=== PATIENT | male | born 1945 | race Caucasian/White ===

== ENCOUNTER 2016-09-29 15:39 | Observation (INO) | payer MEDICARE, BC ==
[~2016-09-29] VITALS: Ht 180.3 cm; Wt 98.2 kg
--- NOTE | ~2016-09-29 | ER ---
PATIENT'S NAME: STEVO WIN [facility] AGE: 70 Y [address] ROOM: [place] [address] LOCATION: GPCU ADMIT DATE: 09/29/2016 ER/Outpatient Report DISCHARGE DATE: FAMILY PHYSICIAN: EMELY WEATHERS MD ATTENDING PHYSICIAN: SAULO CORLEY CHIEF COMPLAINT: Near syncope. TIME OF THE PATIENT ARRIVAL: 1539 hours. TIME OF THE PATIENT EVALUATION: 1539 hours. HISTORY OF PRESENT ILLNESS: This is a 70-year-old male presents to the ER who states that he is here from out-of-town and he went to a motorcycle show today. He states he had 4 separate incidents, where he felt like he was going to pass out while there. He states he has had similar symptoms of this before being 1 week ago. He states he was evaluated in [facility] and was admitted overnight for evaluation. He states he did try to follow up with his primary care physician, but states he was late for his appointment by 15 minutes and so they could not work him into the schedule. The patient states that he had no further episodes of these spells until today. He states during these episodes today it made him feel weak, but he never had any nausea, vomiting, or diaphoresis during them. The patient states that he did feel a little bit short of breath at this time. He states that he never feels any heart palpitations with this. He states he does have a history of PVCs, but they have never done anything for them. The patient denies any recent illness, no fever or chills, no troubles with bowel movements or urination, and no current pain at this time. ALLERGIES: NO KNOWN ALLERGIES. MEDICATIONS: Please see medication list nurse's notes. PAST MEDICAL HISTORY: 1. Hypertension. 2. Hyperlipidemia. 3. Obstructive sleep apnea. 4. Acid reflux. 5. History of orthostatic hypotension. PATIENT'S NAME: STEVO WIN [facility] AGE: 70 Y [address] ROOM: [address] [place] [id number] LOCATION: GPCU ADMIT DATE: 09/29/2016 ER/Outpatient Report DISCHARGE DATE: FAMILY PHYSICIAN: EMELY WEATHERS MD ATTENDING PHYSICIAN: SAULO CORLEY 6. Peripheral neuropathy. 7. Anxiety. 8. Depression. PAST SURGICAL HISTORY: He has had 2 separate back surgeries. SOCIAL HISTORY: Denies smoking, drug, or alcohol use. REVIEW OF SYSTEMS: A 10-point review of system was completed and was negative with the exception of those discussed in the HPI. PHYSICAL EXAMINATION: VITAL SIGNS: Height 5 feet, 11 inches stated, weight 102.9 kg taken, blood pressure is 146/67, pulse 82, respirations 16, temperature 96.6 degrees tympanically, and saturations 93% on room air. Selma Coma Score is 15. GENERAL: Alert, calm, well-developed male, in no obvious distress, but he does seem slow to respond. HEENT: Head: Normocephalic. He does display moist mucous membranes. Eyes: Pupils are equal and reactive to light. NECK: Supple. No lymphadenopathy. LUNGS: Clear to auscultation bilaterally. No wheeze or crackles. Normal respiratory effort. HEART: Regular rate and rhythm. No lifts, thrills, or murmurs. ABDOMEN: Soft, it is nontender, has good bowel sounds throughout. No masses are palpated. EXTREMITIES: No clubbing or cyanosis. He has full range of motion of all limbs. No pitting edema was noted. He has equal bilateral strength. SKIN: Warm, dry, and intact. LABORATORY DATA: CBC: White count is 5.5, hemoglobin is 13.4, platelets 186, ANC is 3.6. PTT is 25, INR is 1.0. CMS: Glucose is 116, BUN 21, creatinine 1.4, sodium is 139, potassium 3.8, estimated GFR is 50, magnesium is 2.2, CPK is 158, CK-MB is 4.4, troponin I is less than 0.040, free T4 is 0.9. TSH is 1.80. Urinalysis is negative for any infection. Chest x-ray shows elevation of the right hemidiaphragm and no infiltrate was seen. IMPRESSION: 1. Near syncopal episodes. 2. Runs of bigeminy. 3. History of hypertension. 4. Orthostatic hypotension. PATIENT'S NAME: STEVO WIN [facility] AGE: 70 Y [address] ROOM: [id number] [place] [id number] LOCATION: [facility] ADMIT DATE: 09/29/2016 ER/Outpatient Report DISCHARGE DATE: FAMILY PHYSICIAN: EMELY WEATHERS MD ATTENDING PHYSICIAN: SAULO CORLEY ASSESSMENT AND PLAN: We did monitor the patient here in the emergency room. I discussed the patient's care with Dr. Alcaraz and Dr. Alcaraz also evaluated the patient. We did start an IV here in the emergency room and did monitor him. He did have some runs of bigeminy while he was here, but remain asymptomatic. The patient states his primary care physician is in [place]; therefore, we called the Hospitalist Service for admission and Dr. Alcaraz did speak with Dr. Liu as well and they will be consulting on the patient. The patient is agreeable with stay; so, we will be turning the care over to the hospitalist and Dr. Liu at this time. WINTER SHAFFER PA-C FOR [facility] SEOJ/modl /[id number] I have personally evaluated this patient. I discussed the patient's care with the PA and agree with the assessment and plan as documented above. Bijan Alcaraz MD d: t: 10/24/16 1154, OUTPATIENT REPORT
--- NOTE | ~2016-09-29 | CON ---
PATIENT'S NAME: STEVO WIN [facility] AGE: 70 Y [address] ROOM: [facility] [place], [place] [address] [facility] ADMIT DATE: 09/29/2016 Consultation DISCHARGE DATE: FAMILY PHYSICIAN: EMELY WEATHERS MD ATTENDING PHYSICIAN: SAULO CORLEY REFERRING PHYSICIAN: ANNE LOMELI MD REASON FOR CONSULT: Recurrent presyncopal episodes and frequent PVCs. HISTORY OF PRESENT ILLNESS: Mr. Win is a very pleasant, 70-year-old male, who was admitted with history of recurrent episodes of presyncope. The patient stated that he had been symptomatic in the past with complaints of room spinning sensation when he used to get up fast. However, 1 week ago, while he was washing his truck, he noticed sudden onset of darkness in front of his eyes. He went to local emergency room in [place] and workup did not reveal any cause. He was discharged with plan for outpatient event monitor. However, he missed his appointment with his primary care physician. Today, he was in town to attend motorcycle show. He developed similar symptoms of darkness in front of his eyes, hence he came to the emergency room. In the emergency room, the patient was found to have frequent PVCs in bigeminy pattern and hence he was admitted for further management. He denied any chest pain. He denied any shortness of breath. No history of fever. No history of seizures. No history of passing out. REVIEW OF SYSTEMS: The patient denied any recent change in vision. No history of nausea, vomiting, diarrhea, or constipation. No history of fever. No history of cough expectoration. No history of syncope, however, has had recurrent presyncopal episodes. Review of other systems was essentially negative. PAST MEDICAL HISTORY: Depression, anxiety, history of bradycardia. The patient stated that he had a stress test in the past and also heart catheterization about 8 years ago and he was told to have normal coronary arteries. PAST SURGICAL HISTORY: History of back surgery. FAMILY HISTORY: The patient stated his mother was found to have abnormal heart rhythm, just before she in her late 80s. His father in his 60s and had seizure history. SOCIAL HISTORY: PATIENT'S NAME: STEVO WIN [facility] AGE: 70 Y [address] ROOM: [address] [address] LOCATION: GPCU ADMIT DATE: 09/29/2016 Consultation DISCHARGE DATE: FAMILY PHYSICIAN: EMELY WEATHERS MD ATTENDING PHYSICIAN: ASULO CORLEY The patient is nonsmoker, occasionally drinks alcohol. He lives independently. CURRENT MEDICATIONS: In the hospital include: 1. Pantoprazole. 2. Simvastatin. 3. Potassium chloride. 4. Gabapentin. 5. Fenofibrate. PHYSICAL EXAMINATION: GENERAL: The patient is awake, alert, and oriented and in no distress. VITAL SIGNS: His pulse rate is 63 beats per minute and regular, blood pressure is 145/82 mmHg, respiratory rate is 16, temperature is 98. HEENT: His head is atraumatic and normocephalic. Pupils are equal. Tongue is moist. No significant cervical lymphadenopathy is present. No significant jugular venous distention is present. CARDIOVASCULAR: S1 and S2 are audible. They are regular in rate and rhythm with no audible murmur. RESPIRATORY: Bilateral vesicular breath sounds are audible with no adventitious sounds. ABDOMEN: Soft and nontender. No palpable organomegaly is present. Bowel sounds are present. EXTREMITIES: Showed no significant pedal edema. NEUROLOGIC: The patient is awake, alert, and oriented and no focal neurological deficits are noted. SKIN: Warm and dry. LABORATORY DATA: Sodium 140, potassium 3.9, chloride 103, CO2 of 28, glucose 107, BUN 15, creatinine 1.2. AST 22, ALT 27, estimated GFR 60. Magnesium 2.2. Cholesterol 162 in 2013. CPK 98, CK-MB 3.3. Troponin I is less than 0.04. White blood cell count 5.5, hemoglobin 13.4, hematocrit 41, platelet count 186. His EKG showed sinus rhythm at 65 beats per minute with first-degree AV block, right bundle branch block. His earlier EKG showed sinus rhythm with frequent PVCs with a heart rate of 80 beats per minute. The PVCs are in bigeminal pattern. ASSESSMENT AND PLAN: 1. Presyncope. 2. Frequent premature ventricular contractions. 3. Hyperlipidemia. 4. Chronic back pain. PATIENT'S NAME: STEVO WIN [facility] AGE: 70 Y [address] ROOM: [address] [place], [place] [address] LOCATION: [facility] ADMIT DATE: 09/29/2016 Consultation DISCHARGE DATE: FAMILY PHYSICIAN: EMELY WEATHERS MD ATTENDING PHYSICIAN: SAULO CORLEY PLAN: We will continue to monitor patient on telemetry. We will check orthostatics. Continue simvastatin and fenofibrate for his hyperlipidemia. In view of frequent PVCs, we will start the patient on low-dose beta-blockers and continue to monitor on telemetry. The patient was advised to undergo stress test in view of frequent PVCs to look for any ischemic etiology, however, the patient stated that he had a bad reaction to previous Lexiscan and refuses to undergo Lexiscan. Also stated that he has chronic back pain and he is not able to walk very fast and does not want to undergo regular stress test or any form of stress test. He was also offered heart catheterization to evaluate for ischemia, which the patient declined. He wants only medical management for PVCs. Hence, we will try beta-blockers and monitor on telemetry. The plan of care was discussed with patient in detail. We will follow the patient along with you. Thank you for allowing us in taking part in the care of this pleasant patient. MD MARIELLA FABIAN/trang /[id number] d: 09/30/16 0948 t: 10/10/16 1431, CONSULTATION REPORT
--- NOTE | ~2016-09-29 | DS ---
PATIENT'S NAME: STEVO WIN [facility] AGE: 70 Y [address] ROOM: [address] [place], [place] [address] LOCATION: GPCU ADMIT DATE: 09/29/2016 Discharge Summary DISCHARGE DATE: 10/01/2016 FAMILY PHYSICIAN: Amada White MD ATTENDING PHYSICIAN: Travis Johnson FINAL DIAGNOSES: 1. Presyncope. 2. Arrhythmia/frequent premature ventricular contractions. 3. Depression. 4. Hematochezia. 5. Chronic back pain. HISTORY OF PRESENT ILLNESS: Please see the history and physical dictated by Dr. Johnson for details of admission. LABORATORY DATA: On admission, sodium 139, potassium 3.8, chloride 100, CO2 32, BUN 21, and creatinine 1.4. Liver enzymes were normal. Magnesium 2.4 at discharge. Sodium 142, potassium 4.3, chloride 105, CO2 29, BUN 16, creatinine 1.1, and magnesium 2.3. White blood cell count on admission 5.5, hemoglobin 13.4, hematocrit 41.4, and platelet count 186. Repeat hemoglobin on the day of discharge was 13.7. Procalcitonin on admission was less than 0.5. Urinalysis on admission did not show any evidence of infection. RADIOLOGY REPORTS: Chest x-ray on admission did not show any acute process. CT scan of the head done in the ER did not show intracranial abnormality. Echocardiogram EF was 50% to 55%. Left ventricle is normal size. He had grade 1 diastolic dysfunction. HOSPITAL COURSE: The patient was admitted with a diagnosis of presyncope, he had been admitted in [place] last week for similar symptoms. He was here at a car show and kind of felt that his vision was going black. He was seen in the emergency room, put on PCU on an observation status. He was seen by Dr. Liu in Cardiology consult and was placed on low-dose metoprolol because of frequent PVCs that were seen on the monitor. The patient was asked to get up and ambulate. PT did work with him. He was able to get up and ambulate without any difficulty. He did not have any recurrence of his symptoms. An echocardiogram was obtained, which did not show any significant structural abnormalities. It was discussed with the patient to proceed with a stress test, which he preferred not to do. It was felt that he was stable for discharge. The day of discharge, he did notice some bright red blood associated with having a bowel movement. A repeat hemoglobin was done and it remained stable. It was felt that the patient was stable for discharge for followup as an outpatient. He is to followup with Dr. White in 5-7 days, follow up with Jessica Flores on October 10 at 8 a.m. He was advised that if he PATIENT'S NAME: STEVO WIN [facility] AGE: 70 Y [address] ROOM: [address] [place], [place] [address] LOCATION: GPCU ADMIT DATE: 09/29/2016 Discharge Summary DISCHARGE DATE: 10/01/2016 FAMILY PHYSICIAN: Amada White MD ATTENDING PHYSICIAN: Travis Johnson has any more bloody stools to contact Dr. White. An event recorder for 14 days was placed on discharge. DISCHARGE MEDICATIONS: 1. Neurontin 300 mg twice daily. 2. Aspirin 81 mg daily. 3. Prilosec 20 mg daily. 4. K-tabs 20 mEq at bedtime. 5. Simvastatin 40 mg at bedtime. 6. Fenofibrate 160 mg at bedtime. 7. Pristiq 100 mg daily. 8. Oxycodone 5/325 1 every 4 hours as needed for pain. 9. Demadex 20 mg at bedtime as needed for swelling. 10. Lamictal 200 mg at bedtime. 11. Lopressor 50 mg half-tablet twice daily for arrhythmia. I did speak with Dr. Amada White. The patient did voice understanding. PROGNOSIS: Overall, prognosis was good. MAGAN GUTIERRES MD LAW/modl /[id number] CC: Amada White MD d: 10/02/16 0150 t: 10/10/16 1643, DISCHARGE SUMMARY
--- NOTE | ~2016-09-29 | ECHO ---
Transthoracic Echocardiography Report (TTE) Demographics Patient Name STEVO WIN Date of Study 10/01/2016 Patient Number [id number] Visit Number [id number] Date of 1945 Room Number G6334 Accession Number [id number] Gender Male Age 70 year(s) Referring Christopher Ybarra Mud Car Worker Olivia Garcia RVJan, Physician A MICHAEL Ardon MD Physician Interpreting Alexa Richardson Shear Assembler Physician Supervising Ordering Physician Alexa Richardson MD/MLP Nurse Stress Room Service Runner Conclusions Summary The estimated left ventricular ejection fraction is 50-55%. The left ventricle is normal in size . Mild basal septal left ventricular hypertrophy. Diastolic assessment reveals Grade I diastolic dysfunction. The left atrium is mildly dilated. The right atrium is mildly dilated. Mild tricuspid regurgitation by color Doppler. There is mild pulmonary hypertension. The estimated pulmonary pressure (RVSP) is 36 mmHg. Mild pulmonic valve regurgitation by color Doppler. The ascending aorta appears mildly dilated. The maximum diameter measures 3.8 cm. Procedure Type of Study TTE procedure:2D Echocardiogram, M-Mode, Doppler , Color Doppler. Procedure Date Date: 10/01/2016 Start: 07:07 AM Study Location: Inpatient Portable Technical Quality: Adequate visualization Indications:Pre-syncope. Appropriate Use Criteria: 9 Patient Status: Routine HR: 56 bpm BP: 154/88 mmHg M-Mode/2D Measurements LV Diastolic Dimension: 4.91 cm LV Systolic Dimension: 3.96 cm LV Septum Diastolic: 1.3 cm LV PW Diastolic: 1.13 cm AO Root Dimension: 3.2 cm Cardiac Output: 2.87 l/min AV Cusp Separation: 2 cm RV Diastolic Dimension: 4.71 cm LA volume: 66 ml LVOT: 2 cm RV Base: 3.88 cm LVOT VTI: 16.3 cm RV Mid: 3.09 cm LV Stroke volume: 51.18 ml TAPSE: 1.5 cm TDI-S': 8.88 cm/s Doppler Measurements AV Peak Velocity: 1.22 m/s MV Peak E-Wave: 0.45 m/s AV Peak Gradient: 5.95 mmHg MV Peak A-Wave: 0.74 m/s AV Mean Gradient: 3 mmHg MV E/A Ratio: 0.61 LVOT Peak Velocity: 0.76 m/s MV P1/2t: 111 msec MV Deceleration Time: 345 msec TR Gradient:32.95 mmHg PV Peak Velocity: 0.68 m/s Estimated RAP:3 mmHg PV Peak Gradient: 1.83 mmHg Estimated RVSP: 36 mmHg Estimated PASP: 35.95 mmHg E' Septal Velocity: 0.05 m/s A' Septal Velocity: 0.09 m/s E' Lateral Velocity: 0.06 m/s A' Lateral Velocity: 0.09 m/s Findings Left Ventricle The left ventricle is normal in size . Mild basal septal left ventricular hypertrophy. Diastolic assessment reveals Grade I diastolic dysfunction. Right Ventricle Normal right ventricular size and function. Left Atrium The left atrium is mildly dilated. Right Atrium The right atrium is mildly dilated. IVC measures 1.57 cm with inspiratory collapse. Mitral Valve Mild mitral annular calcification. Mild mitral regurgitation by color Doppler. Aortic Valve The aortic valve is mildly sclerotic. Tricuspid Valve Normal tricuspid valve structure and function. Mild tricuspid regurgitation by color Doppler. There is mild pulmonary hypertension. The estimated pulmonary pressure (RVSP) is 36 mmHg. Pulmonic Valve Normal pulmonic valve structure and function. Mild pulmonic valve regurgitation by color Doppler. Pericardial Effusion No evidence of pericardial effusion. Miscellaneous Visualized portions of the aortic root appear normal in size. The ascending aorta appears mildly dilated. The maximum diameter measures 3.8 cm. Pleural Effusion No evidence of pleural effusion. Contractility Score LV regional wall motion:(0-Non visualized 1-Normal 2-Hypokinesis 3-Akinesis 4-Dyskinesis 5-Aneurysm) Signature dtt: ANNE LOMELI dtd: 10/01/16 0707 Physician Self Edit
--- NOTE | ~2016-09-29 | HP ---
PATIENT'S NAME: STEVO WIN [facility] AGE: 70 Y [address] ROOM: [place] [address] LOCATION: GPCU ADMIT DATE: 09/29/2016 History & Physical DISCHARGE DATE: FAMILY PHYSICIAN: EMELY WEATHERS MD ATTENDING PHYSICIAN: SAULO CORLEY DATE OF SERVICE: PRIMARY CARE PHYSICIAN: None. CHIEF COMPLAINT: Near syncopal episode. HISTORY OF PRESENT ILLNESS: This is a 70-year-old male with a history of bradycardia in the past. The patient states that he started having near syncope for the past 1 week now. His first episode was about last week. He was evaluated in [place] [facility] and then discharged after an observation stay. All his lab work was found to be normal at that point of time. The patient was asked to follow up with his primary care physician, but he went to the clinic and was late. Hence, he could not be seen by his primary care physician. The patient states that he came into town today for a motor bike show. He then started having near syncopal episodes. He had about 3 to 4 episodes where he feels lightheaded all of a sudden. He feels like he is going to black out. He has not fallen, hit his head, or lost consciousness. He denies any chest pain. He is diaphoretic during these episodes. He denies any convulsive movements of the extremities during these episodes. Denies any chest pain. Denies shortness of breath. Denies abdominal pain, diarrhea, or constipation. He complains of chronic back pain, and has undergone surgery for low back pain. Denies any fever history. No other complaints at this point in time. REVIEW OF SYSTEMS: A 10-point review of systems was done and was otherwise negative except as mentioned above. HOME MEDICATIONS: Per SEP. PAST MEDICAL HISTORY: 1. Depression. 2. Anxiety. 3. History of bradycardia. PATIENT'S NAME: STEVO WIN [facility] AGE: 70 Y [address] ROOM: [address] [address] LOCATION: GPCU ADMIT DATE: 09/29/2016 History & Physical DISCHARGE DATE: FAMILY PHYSICIAN: EMELY WEATHERS MD ATTENDING PHYSICIAN: SAULO CORLEY PAST SURGICAL HISTORY: Back surgery reported. FAMILY HISTORY: Mother had abnormal heart rhythm. Father had seizure history. SOCIAL HISTORY: The patient denies smoking history. He occasionally drinks alcohol. He currently lives independently. PHYSICAL EXAMINATION: VITAL SIGNS: Temperature 98.2; pulse 80, irregular; respirations 16; blood pressure 132/85; and saturation 94% on 2 L nasal cannula oxygen. GENERAL: The patient is alert and oriented x3, answers all questions appropriately, in no acute distress. HEENT: Head: Normocephalic, atraumatic. Pupils are equal, round, and reactive to light. Extraocular muscles are intact. Oropharynx moist. NECK: Supple. No nuchal rigidity. HEART: Irregular rhythm. LUNGS: Clear to auscultation bilaterally. ABDOMEN: Soft, nontender, nondistended. Bowel sounds are present. EXTREMITIES: No clubbing, cyanosis, or edema. VASCULAR: Pulses are 2+ distally bilaterally. NEUROLOGIC: The patient is alert and oriented x3, follows all commands, moves all extremities. Cranial nerves 2 through 12 grossly intact. Deep tendon reflexes 2+/4. Sensation intact in bilateral upper and lower extremities. DIAGNOSTIC STUDIES: CPK 158. Troponin I less than 0.04. CBC showed a white count of 5.5, hemoglobin 13.4, hematocrit 41.1, platelets 186. CMP showed sodium 139, potassium 3.8, chloride 100, bicarb 32, BUN 21, creatinine 1.4, glucose 116, calcium 8.4, total protein 6.6, albumin 3.6, AST 22, ALT 27, alkaline phosphatase 49, total bilirubin 0.3, magnesium 2.2, anion gap 10.8, globulin 3.0, GFR 50, PT 10.2, INR 1.0, PTT 25. UA showed specific gravity 1.010 with a pH of 7.0, showed leukocytes, and negative for bacteria. CK-MB 4.4, free T4 of 0.9. TSH 1.8. EKG showed sinus rhythm with frequent PVCs, no acute ST changes. CT head, no contrast, was done for near syncope and showed no acute intracranial abnormality. Chest x-ray pending at this point of time. 2D echo and carotid Doppler study are pending. ASSESSMENT AND PLAN: A 70-year-old male presenting with a near syncopal episode. 1. Near syncopal episode: I will hydrate him with IV fluids. Orthostatic blood pressure will be obtained for the patient. Differential includes PATIENT'S NAME: STEVO WIN [facility] AGE: 70 Y [address] ROOM: [address] [place], [place] [address] [facility] ADMIT DATE: 09/29/2016 History & Physical DISCHARGE DATE: FAMILY PHYSICIAN: EMELY WEATHERS MD ATTENDING PHYSICIAN: SAULO CORLEY abnormal heart rhythm, arrhythmia versus seizure. I will also obtain a prolactin level. If there is any evidence for seizure activity, we will obtain an EEG and get a Neurology consult. A Cardiology consult has been obtained for the patient. Dr. Liu will see the patient in the morning. A 2D echo will be obtained for the patient. Carotid Doppler will also be obtained for the patient. He currently does not have any neurologic deficits. 2. History of bradycardia. 3. Deep vein thrombosis prophylaxis: Heparin. 4. History of chronic low back pain: Continue home medication. 5. Depression: Continue home medication. 6. Anxiety: Continue home medication. 7. Code status: Full code. Discussed with the patient at the time of admission. SAULO CORLEY MD MT/trang /[id number] D: T: [id number] HISTORY & PHYSICAL
[2016-09-29 16:50] LABS: BASOPHIL % 0.4 %; EOSINOPHIL # 0.1 K/uL (0.0-0.5); EOSINOPHIL % 1.1 %; HEMATOCRIT 41.1 % (37.0-53.0); HEMOGLOBIN 13.4 g/dL (11.0-16.0); IMMATURE GRANULOCYTE % 0.4 %; LYMPHOCYTE # 1.3 K/uL (0.8-4.0); LYMPHOCYTE % 24.4 %; MCH 29.5 pg (27.0-34.0); MCHC 32.6 gm/dL (32.0-36.5); MCV 90.3 fl (83.0-98.0); MONOCYTE # 0.4 K/uL (0.0-1.0); MONOCYTE % 7.8 %; MPV 10.6 fl (9.4-12.4); NEUTROPHIL # (ANC) 3.6 K/uL (1.4-9.0); NEUTROPHIL % 65.9 %; NRBC % 0 /100WBC (0-0.00); PLATELET COUNT 186 K/uL (150-450); RBC 4.55 M/uL (3.50-5.50); RDW-CV 13.1 % (11.9-14.6); WBC 5.5 K/uL (4.0-11.0)
[2016-09-29 17:09] LABS: ALBUMIN 3.6 gm/dL (3.5-5.0); ALK PHOS 49 IU/L (33-138); ALT 27 IU/L (12-78); ANION GAP 10.8 (10.0-19.0); AST 22 IU/L (10-40); BLOOD UREA NITROGEN 21 mg/dL (6-24); CALCIUM 8.4 mg/dL (8.5-10.5); CHLORIDE 100 mMol/L (96-110); CO2 32 mMol/L (22-32); CPK 158 IU/L (35-332); CREATININE 1.4 mg/dL (0.6-1.3); ESTIMATED GFR (MDRD EQUATION) 50; MAGNESIUM 2.2 mg/dL (1.3-2.6); POTASSIUM 3.8 mMol/L (3.7-5.1); SODIUM 139 mMol/L (135-145); TOTAL BILIRUBIN 0.3 mg/dL (0.0-1.5); TOTAL PROTEIN 6.6 g/dL (6.0-8.4)
[2016-09-29 17:19] LABS: PROTIME 10.2 SECONDS (9.6-11.1); PTT 25 SECONDS (25-32)
[2016-09-29 17:27] LABS: BILIRUBIN URINE NEGATIVE (NEGATIVE); BLOOD URINE NEGATIVE /UL (NEGATIVE); COLOR URINE YELLOW (YELLOW); GLUCOSE URINE NEGATIVE (NEGATIVE); KETONE URINE NEGATIVE (NEGATIVE); LEUKOCYTES URINE 25 /UL (NEGATIVE); NITRITE URINE NEGATIVE (NEGATIVE); PROTEIN URINE NEGATIVE (NEGATIVE); TURBIDITY URINE CLEAR (CLEAR); UROBILINOGEN URINE NORMAL (NORMAL)
[2016-09-29 17:33] LABS: BACTERIA URINE NEGATIVE (NEGATIVE); EPITHELIAL URINE RARE #/HPF (NEGATIVE); RBC URINE RARE #/HPF (NEGATIVE); WBC URINE 0-2 #/HPF (NEGATIVE)
[2016-09-29 19:07] LABS: CPK 143 IU/L (35-332)
[2016-09-29] MEDS ORDERED: NEURONTIN300 MG PO (20:09)
[2016-09-29] MEDS ORDERED: K-TAB ER20 MEQ PO (20:10)
[2016-09-29] MEDS ORDERED: PRILOSEC20 MG PO (20:10)
[2016-09-29] MEDS ORDERED: ZOCOR40 MG PO (20:11)
[2016-09-29] MEDS ORDERED: TRICOR 160 MG160 MG PO (20:12)
[2016-09-29] MEDS ORDERED: ULTRAM50 MG PO (20:13)
[2016-09-29] MEDS ORDERED: NORCO 5-325 TA1 EACH PO (20:15)
[2016-09-29] MEDS ORDERED: PRISTIQ ER100 MG PO (20:18)
[2016-09-30 00:24] LABS: CPK 115 IU/L (35-332)
[2016-09-30 06:07] LABS: CPK 98 IU/L (35-332)
[2016-09-30 06:21] LABS: ANION GAP 12.9 (10.0-19.0); CALCIUM 8.7 mg/dL (8.5-10.5); CREATININE 1.2 mg/dL (0.6-1.3); POTASSIUM 3.9 mMol/L (3.7-5.1)
[2016-10-01 03:40] LABS: ANION GAP 12.3 (10.0-19.0); BLOOD UREA NITROGEN 16 mg/dL (6-24); CALCIUM 8.8 mg/dL (8.5-10.5); CHLORIDE 105 mMol/L (96-110); CO2 29 mMol/L (22-32); CREATININE 1.1 mg/dL (0.6-1.3); ESTIMATED GFR (MDRD EQUATION) > 60; MAGNESIUM 2.3 mg/dL (1.3-2.6); POTASSIUM 4.3 mMol/L (3.7-5.1); SODIUM 142 mMol/L (135-145)
[2016-10-01] MEDS ORDERED: ENDOCET 5-3251 EACH PO (10:34)
[2016-10-01] MEDS ORDERED: DEMADEX20 M1 PO (10:36)
[2016-10-01] MEDS ORDERED: LAMICTAL200 MG PO (10:37)
[2016-10-01] MEDS ORDERED: ASPIRIN LO-DOSE81 MG PO (10:39)
[2016-10-01] MEDS ORDERED: LOPRESSOR50 MG PO (14:30)
== END 2016-10-01 15:40 | disposition disaster alternative care site (69) ==
LOC: GMED 15:39 → GPCU 18:55
PROVIDERS: Internal Medicine Interventional Cardiology; Physician Assistant Medical; ADMIT Family Medicine
DX: R55 Syncope and collapse (principal); I49.3 Ventricular premature depolarization; F32.9 Major depressive disorder, single episode, unspecified; K92.1 Melena; G47.33 Obstructive sleep apnea (adult) (pediatric); I10 Essential (primary) hypertension; K21.9 Gastro-esophageal reflux disease without esophagitis; G62.9 Polyneuropathy, unspecified; F41.9 Anxiety disorder, unspecified; E78.5 Hyperlipidemia, unspecified; Z79.82 Long term (current) use of aspirin; Z79.899 Other long term (current) drug therapy
CPT/HCPCS: G0378; G8978; G8979; G8980; J1644; J7030